=== PATIENT | male | born 1960 | race African-American/Black ===

== ENCOUNTER 2019-08-25 16:08 | Inpatient (IN) | payer MEDICAID ==
[~2019-08-25] VITALS: Ht 182.9 cm; Wt 81.7 kg
[2019-08-25] MEDS ORDERED: LEVE500T53 PO (17:51)
[2019-08-25] MEDS ORDERED: FURO20 PO (17:51)
[2019-08-25] MEDS ORDERED: IPRAHFA IH (17:51)
[2019-08-25] MEDS ORDERED: LISI-660 PO (17:51)
[2019-08-25] MEDS ORDERED: HYDR-1475 PO (17:51)
[2019-08-25] MEDS ORDERED: IPRA4AER IH (17:51)
[2019-08-25] MEDS ORDERED: BENZ1TAB10 PO (17:55)
[2019-08-25] MEDS ORDERED: RISP0.5T20 PO (17:55)
[2019-08-25] MEDS ORDERED: LORazepam 2 MG TABLET PO PRN (18:00)
[2019-08-25] MEDS ORDERED: HALOPERIDOL 5 MG TABLET PO PRN (18:00)
[2019-08-25] MEDS ORDERED: ZOLPIDEM TARTRATE 10 MG TABLET PO PRN (18:00)
[2019-08-25 18:23] VITALS: BP 143/76
[2019-08-25] MEDS ORDERED: PNEUMOCOCCAL VACCINE POLYVALENT 0.5 ML VIAL [PPSV23] IM ONE (19:00)
[2019-08-25] MEDS: HYDROCHLOROTHIAZIDE 25 MG TABLET PO SCH (22:07)
[2019-08-25] MEDS: LISINOPRIL 5 MG TABLET PO SCH (22:07)
[2019-08-25] MEDS: LevETIRAcetam 500 MG TABLET PO SCH (22:07)
[2019-08-25] MEDS: FUROSEMIDE 20 MG TABLET PO SCH (22:08)
[2019-08-26 05:56] VITALS: BP 130/77
[2019-08-26] MEDS ORDERED: MAG HYDROX/AL HYDROX/SIMETH ES 30 ML SUSPENSION UDCUP PO PRN (07:00)
[2019-08-26] MEDS ORDERED: NICOTINE 14 MG/24 HOUR PATCH TD PRN (07:00)
[2019-08-26] MEDS ORDERED: MAGNESIUM HYDROXIDE SUSPENSION 30 ML UDCUP PO PRN (07:00)
[2019-08-26] MEDS ORDERED: GuaiFENesin/D-METHORPHAN [SUGAR-FREE] 200-20MG/10 ML SYRUP UDCUP PO PRN (07:00)
[2019-08-26] MEDS ORDERED: ONDANSETRON HCL 4 MG TABLET PO PRN (07:00)
[2019-08-26] MEDS ORDERED: CloNIDine HCL 0.1 MG TABLET PO PRN (07:00)
[2019-08-26] MEDS ORDERED: LOPERAMIDE HCL 2 MG CAPSULE PO PRN (07:00)
[2019-08-26] MEDS ORDERED: IBUPROFEN 400 MG TABLET PO PRN (07:00)
[2019-08-26] MEDS ORDERED: PETROLATUM,WHITE 28 GM JELLY TP PRN (07:00)
[2019-08-26] MEDS ORDERED: DOCUSATE SODIUM 100 MG CAPSULE PO PRN (07:00)
[2019-08-26] MEDS ORDERED: ALBUTEROL SULFATE HFA 90 MCG/PUFF 8 GM INHALER IH PRN (07:00)
[2019-08-26] MEDS ORDERED: ACETAMINOPHEN 325 MG TABLET PO PRN (07:00)
[2019-08-26 07:55] LABS: BASOPHILS % (AUTO) 1.5 % (0.0-2.0); EOSINOPHILS % (AUTO) 3.1 % (1.0-6.0); HEMOGLOBIN 11.8 g/dL (13.5-17.5); LYMPHOCYTES # (AUTO) 1.6 K/uL (1.0-4.8); LYMPHOCYTES % (AUTO) 32.3 % (22.0-44.0); MEAN CORPUSCULAR HEMOGLOBIN 23.2 pg (26.0-34.0); MEAN CORPUSCULAR VOLUME 73 fL (80-100); MONOCYTES # (AUTO) 0.4 K/uL (0.1-1.0); MONOCYTES % (AUTO) 8.3 % (2.0-9.0); NEUTROPHILS # (AUTO) 2.8 K/uL (1.8-7.7); NEUTROPHILS % (AUTO) 54.8 % (40.0-70.0); PLATELET COUNT (AUTO) 286 K/uL (150-450)
[2019-08-26 08:10] VITALS: BP 126/81
[2019-08-26 08:20] LABS: HEMOGLOBIN A1C 5.8 % (3.8-5.6)
[2019-08-26 08:21] LABS: ALANINE AMINOTRANSFERASE 21 U/L (12-78); ALBUMIN 3.4 g/dL (3.4-5.0); ALKALINE PHOSPHATASE 61 U/L (46-116); ANION GAP 6 mmol/L (8-16); ASPARTATE AMINOTRANSFERASE 23 U/L (15-37); BILIRUBIN,TOTAL 0.2 mg/dL (0.1-1.0); CARBON DIOXIDE 31 mmol/L (22-29); CHLORIDE 100 mmol/L (98-107); CHOLESTEROL 129 mg/dL (131-200); CREATININE 0.96 mg/dL (0.60-1.30); FREE T4 (FREE THYROXINE) 1.01 ng/dL (0.76-1.46); GLOMERULAR FILTR. RATE CALC > 60 mL/min (>60); GLUCOSE,RANDOM 94 mg/dL (70-110); HDL CHOLESTEROL 63 mg/dL (40-60); LDL CHOL (CALC.) 60 mg/dL (0-130); POTASSIUM 3.6 mmol/L (3.5-5.1); SODIUM SERUM 137 mmol/L (136-145); THYROID STIMULATING HORMONE 0.96 uIU/mL (0.36-3.74); TOTAL PROTEIN, SERUM 7.2 g/dL (6.4-8.2); TRIGLYCERIDES 31 mg/dL (15-150); UREA NITROGEN, BLOOD 24 mg/dL (7-18)
[2019-08-26] MEDS: LISINOPRIL 5 MG TABLET PO SCH (08:46)
[2019-08-26] MEDS: LevETIRAcetam 500 MG TABLET PO SCH ×2 (08:47→16:29)
[2019-08-26] MEDS: HYDROCHLOROTHIAZIDE 25 MG TABLET PO SCH (08:47)
[2019-08-26] MEDS: FUROSEMIDE 20 MG TABLET PO SCH (08:54)
[2019-08-26] MEDS ORDERED: LISINOPRIL 5 MG TABLET PO SCH (09:00)
[2019-08-26] MEDS ORDERED: HYDROCHLOROTHIAZIDE 25 MG TABLET PO SCH (09:00)
[2019-08-26] MEDS ORDERED: LevETIRAcetam 500 MG TABLET PO SCH (09:00)
[2019-08-26] MEDS ORDERED: FUROSEMIDE 20 MG TABLET PO SCH (09:00)
[2019-08-26] MEDS: RisperiDONE 2 MG TABLET PO SCH (20:29)
[2019-08-27 05:41] VITALS: BP 129/54
[2019-08-27 08:40] VITALS: BP 101/58
[2019-08-27] MEDS: LISINOPRIL 5 MG TABLET PO SCH (08:55)
[2019-08-27] MEDS: HYDROCHLOROTHIAZIDE 25 MG TABLET PO SCH (09:00)
[2019-08-27] MEDS: FUROSEMIDE 20 MG TABLET PO SCH (09:00)
[2019-08-27] MEDS: LevETIRAcetam 500 MG TABLET PO SCH ×2 (09:00→16:39)
[2019-08-27] MEDS: RisperiDONE 2 MG TABLET PO SCH ×2 (09:00→20:40)
[2019-08-27 16:10] VITALS: BP 132/97
[2019-08-28 05:48] VITALS: BP 126/72
[2019-08-28 08:11] VITALS: BP 115/65
[2019-08-28] MEDS: LevETIRAcetam 500 MG TABLET PO SCH ×3 (09:00→16:37)
[2019-08-28] MEDS: FUROSEMIDE 20 MG TABLET PO SCH ×2 (09:00→09:14)
[2019-08-28] MEDS: LISINOPRIL 5 MG TABLET PO SCH ×2 (09:00→09:14)
[2019-08-28] MEDS: RisperiDONE 2 MG TABLET PO SCH ×3 (09:00→20:48)
[2019-08-28 17:07] VITALS: BP 127/87
[2019-08-29 05:35] VITALS: BP 118/70
[2019-08-29 07:42] LABS: ALANINE AMINOTRANSFERASE 22 U/L (12-78); ALBUMIN 3.4 g/dL (3.4-5.0); ALKALINE PHOSPHATASE 62 U/L (46-116); ANION GAP 8 mmol/L (8-16); ASPARTATE AMINOTRANSFERASE 20 U/L (15-37); BILIRUBIN,TOTAL 0.2 mg/dL (0.1-1.0); CALCIUM, TOTAL 8.8 mg/dL (8.8-10.5); CARBON DIOXIDE 26 mmol/L (22-29); CHLORIDE 102 mmol/L (98-107); CREATININE 0.88 mg/dL (0.60-1.30); GLOMERULAR FILTR. RATE CALC > 60 mL/min (>60); GLUCOSE,RANDOM 94 mg/dL (70-110); POTASSIUM 4.5 mmol/L (3.5-5.1); SODIUM SERUM 136 mmol/L (136-145); TOTAL PROTEIN, SERUM 6.9 g/dL (6.4-8.2); UREA NITROGEN, BLOOD 22 mg/dL (7-18)
[2019-08-29] MEDS ORDERED: RISP2TAB76 PO (08:00)
[2019-08-29 08:28] VITALS: BP 103/60
[2019-08-29] MEDS: FUROSEMIDE 20 MG TABLET PO SCH (08:56)
[2019-08-29] MEDS: LevETIRAcetam 500 MG TABLET PO SCH (08:56)
[2019-08-29] MEDS: LISINOPRIL 5 MG TABLET PO SCH (08:56)
[2019-08-29] MEDS: RisperiDONE 2 MG TABLET PO SCH (08:56)
== END 2019-08-29 15:00 | disposition home or self-care (01) | DRG 885 ==
LOC: B3A 18:45
DX: F20.0 Paranoid schizophrenia (principal); I10 Essential (primary) hypertension; J44.9 Chronic obstructive pulmonary disease, unspecified; G40.909 Epilepsy, unspecified, not intractable, without status epilepticus; D64.9 Anemia, unspecified; Z59.0 Homelessness; Z81.8 Family history of other mental and behavioral disorders
CPT/HCPCS: 83036; 84439; 84443

== ENCOUNTER 2020-09-08 19:59 | Emergency (ER) | payer MEDICAID ==
[~2020-09-08] VITALS: Ht 185.4 cm; Wt 81.8 kg
[~2020-09-08 19:59] MED LIST: FURO20 PO; LEVE500T53 PO; LISI-892 PO; RISP2TAB76 PO
[2020-09-08] MEDS ORDERED: VANCOMYCIN HCL 1 GM/D5% WATER 200 ML IV ONE (21:30)
[2020-09-08 21:55] LABS: BASOPHILS % (AUTO) 0.6 % (0.0-2.0); EOSINOPHILS % (AUTO) 2.3 % (1.0-6.0); HEMATOCRIT 40.2 % (41-53); HEMOGLOBIN 12.6 g/dL (13.5-17.5); LYMPHOCYTES # (AUTO) 1.1 K/uL (1.0-4.8); LYMPHOCYTES % (AUTO) 11.6 % (22.0-44.0); MEAN CORPUSCULAR HGB CONC 31.3 G/dL (31.0-37.0); MEAN CORPUSCULAR VOLUME 74 fL (80-100); MONOCYTES # (AUTO) 0.9 K/uL (0.1-1.0); MONOCYTES % (AUTO) 9.3 % (2.0-9.0); NEUTROPHILS # (AUTO) 7.5 K/uL (1.8-7.7); NEUTROPHILS % (AUTO) 76.2 % (40.0-70.0); PLATELET COUNT (AUTO) 341 K/uL (150-450); RED BLOOD CELL COUNT(AUTO) 5.46 MIL/uL (4.50-5.90); RED CELL DISTRIBUTION WIDTH 15.3 % (11.5-14.5)
[2020-09-08 22:04] LABS: ANION GAP 7 mmol/L (8-16); CALCIUM, TOTAL 9.2 mg/dL (8.8-10.5); CARBON DIOXIDE 30 mmol/L (22-29); CHLORIDE 101 mmol/L (98-107); CREATININE 0.98 mg/dL (0.60-1.30); GLOMERULAR FILTR. RATE CALC > 60 mL/min (>60); GLUCOSE,RANDOM 110 mg/dL (70-110); POTASSIUM 4.8 mmol/L (3.5-5.1); SODIUM SERUM 138 mmol/L (136-145); UREA NITROGEN, BLOOD 19 mg/dL (7-18)
[2020-09-08 22:11] LABS: ALANINE AMINOTRANSFERASE 24 U/L (12-78); ALBUMIN 3.2 g/dL (3.4-5.0); ALKALINE PHOSPHATASE 74 U/L (46-116); ASPARTATE AMINOTRANSFERASE 18 U/L (15-37); BILIRUBIN,TOTAL 0.2 mg/dL (0.1-1.0); TOTAL PROTEIN, SERUM 7.6 g/dL (6.4-8.2)
[2020-09-08 22:14] LABS: LACTIC ACID 1.3 mmol/L (0.4-2.0)
[2020-09-09 01:20] VITALS: BP 138/87
== END 2020-09-09 01:57 | disposition home or self-care (01) ==
LOC: EMS 20:01
DX: L02.414 Cutaneous abscess of left upper limb (principal); J44.9 Chronic obstructive pulmonary disease, unspecified; I10 Essential (primary) hypertension; F17.210 Nicotine dependence, cigarettes, uncomplicated; F12.90 Cannabis use, unspecified, uncomplicated; Z88.8 Allergy status to other drugs, medicaments and biological substances; Z79.899 Other long term (current) drug therapy
CPT/HCPCS: 36415; 73080; 80053; 83605; 85025; 87040; 87070; 87077; 87205; 96365; 96366; 99284; J3370; 87186